=== PATIENT | male | born 1940 | race Caucasian/White ===

== ENCOUNTER 2019-09-01 06:12 | Observation (INO) ==
--- NOTE | 2019-09-01 06:36 | EKG Report ---
Test Performed on : 09/01/2019 06:29:05 AM Test Reason : chest pain Blood Pressure : / mmHG Vent. Rate : 074 BPM Atrial Rate : 074 BPM P-R Int : 150 ms QRS Dur : 082 ms QT Int : 388 ms P-R-T Axes : 075 070 050 degrees QTc Int : 430 ms Sinus rhythm. with occasional premature ventricular complexes. Possible Left atrial enlargement Borderline ECG No previous ECGs available Unconfirmed Result
[2019-09-01 06:40] LABS: BASO# 0.01 X1000 (0.0-0.2); BASO% 0.1 % (0.0-0.8); EOS# 0.07 X1000 (0.0-0.7); EOS% 0.6 % (0.0-10.0); HEMATOCRIT 43.8 % (42.0-52.0); HEMOGLOBIN 14.5 g/dL (14.0-18.0); IMM GRAN# 0.02 X1000 (0.0-0.04); IMM GRAN% 0.2 % (0.0-0.5); LYMPH# 1.11 X1000 (1.2-3.4); LYMPH% 9.4 % (20.5-51.1); MCH 31.3 PG (27-31); MCHC 33.1 g/dL (33-37); MCV 94.4 FL (81-99); MONO# 0.76 X1000 (0.11-0.59); MONO% 6.5 % (1.7-9.3); MPV 9.7 FL (7.4-10.4); NEUT# 9.78 X1000 (1.4-6.5); NEUT% 83.2 % (42.2-75.2); PLT 189 X1000 (130-400); RBC 4.64 XMIL (4.7-6.1); RDW 13.6 % (11.5-14.5); WBC 11.75 X1000 (4.8-10.8)
--- NOTE | 2019-09-01 07:00 | PROVIDER DOCUMENTATION ---
HPI-Respiratory General - General Chief Complaint: Seizure Stated Complaint: FEVER / CHEST TIGHT Time Seen by Provider: 09/01/19 06:29 Source: patient Allergies/Adverse Reactions: Patient Allergies Allergy/AdvReac Type Severity Reaction Status Date / Time codeine AdvReac NAUSEA/VOMI Verified 09/01/19 06:42 TING - History of Present Illness-Resp Nature of Presenting Problem: 79 y/o WM c/o yellow productive cough and SOB chest tightness for the past 3-4 days saying that he thinks he has pneumonia. While in triage pt stated that he felt weak and appeared to have a mild seizure lasting seconds per triage nurse. Quality of Pain: reports: aching Severity in ED: reports: moderate Onset/Duration: reports: 4 days ago Timing: reports: still present, getting worse Context: reports: recent URI Cough Quality/Degree: reports: moderate, productive cough Episode Frequency: no prior episodes Current Respiratory Medication Therapy: Initiated see nurses note Modifying Factors: improves with: coughing Associated Symptoms: reports: chest pain/soreness, cough, fever/chills, nasal congestion, shortness of breath Similar Symptoms Previously?: No Recently seen or treated by another doctor?: No Review of Systems - Adult - REVIEW OF SYSTEMS - ADULT Constitutional: reports: no symptoms reported, see HPI Eyes: reports: no symptoms reported, see HPI Ears, Nose, Mouth & Throat: reports: no symptoms reported, see HPI Cardiovascular: reports: see HPI, chest pain Respiratory: reports: see HPI, shortness of breath Gastrointestinal: reports: no symptoms reported, see HPI Genitourinary: reports: no symptoms reported, see HPI Musculoskeletal: reports: no symptoms reported, see HPI Integumentary: reports: no symptoms reported, see HPI Neurological: reports: see HPI, seizure (possible seizure) Psychiatric: reports: no symptoms reported, see HPI Endocrine: reports: no symptoms reported, see HPI Hematologic/Lymphatic: reports: no symptoms reported, see HPI Allergic/Immunologic: reports: no symptoms reported, see HPI All Other Systems: Reviewed and Negative Past History - Adult - PAST MEDICAL HISTORY-ADULT Review of Records: reports: Nursing Assessment Review, Medications Reviewed, Social history reviewed & non-contributory. Physical Exam-General - PHYSICAL EXAM-ADULT Initial Vital Signs Reviewed: Yes - CONSTITUTIONAL General Appearance: appears well, alert, no apparent distress - EYES Eyes: PERRL/EOMI - HEAD, EARS, NOSE, MOUTH & THROAT HENMT: normocephalic/atraumatic, moist mucous membranes - NECK Neck: non-tender, full range of motion, supple, normal inspection - RESPIRATORY Respiratory: chest non-tender, lungs clear, normal breath sounds, no pleuratic chest pain, no respiratory distress - CARDIOVASCULAR Cardiovascular: normal peripheral pulses, regular rate, rhythm, no edema, no gallop, no JVD, no murmur - GASTROINTESTINAL (ABDOMEN) Abdominal Exam: normal bowel sounds, non tender, soft, abdominal bruit - LYMPHATIC Lymphatic: no adenopathy - MUSCULOSKELETAL Back Exam: normal inspection, no CVA tenderness, no vertebral tenderness Extremity: normal range of motion, non-tender, normal gait, normal inspection, no pedal edema, no calf tenderness, normal capillary refill - SKIN Integumentary: normal color, normal turgor - NEUROLOGIC Neurologic: probate paralegal II-XII nml as tested, grossly normal, no motor/sensory deficits - PSYCHIATRIC Psych/Mental Status: normal mood/affect, normal thought content, normal thought process, oriented x 3 - HEART Score HEART Score: History: Slightly Suspicious HEART Score: ECG: Non-Specific Repolarization Disturbance/LBBB/PM HEART Score: Age: > or = 65 Years HEART Score: Risk Factors for Atherosclerotic Disease: 1 or 2 Risk Factors HEART Score: Troponin: < or = Normal Limit Total HEART Score:: 4 Progress - PLAN OF CARE/RESULTS Progress/Plan/Lab Results: Vital Signs - 8 hr 09/01/19 06:20 09/01/19 07:45 09/01/19 09:13 Temperature 98.2 F 98.8 F Pulse Rate 65 65 Pulse Rate [Sitting] 85 Pulse Rate [Standing] 97 H Pulse Rate [Supine] 66 Respiratory Rate 25 H 18 17 Blood Pressure 130/71 136/60 Blood Pressure [Sitting] 102/46 Blood Pressure [Standing] 101/54 Blood Pressure [Supine] 126/57 O2 Sat by Pulse Oximetry 96 98 09/01/19 09:58 Temperature Pulse Rate Pulse Rate [Sitting] 79 Pulse Rate [Standing] 101 H Pulse Rate [Supine] 81 Respiratory Rate Blood Pressure Blood Pressure [Sitting] 127/62 Blood Pressure [Standing] 126/69 Blood Pressure [Supine] 130/71 O2 Sat by Pulse Oximetry Laboratory Results - last 24 hr 09/01/19 09/01/19 09/01/19 06:28 06:28 06:28 WBC 11.75 H RBC 4.64 L Hgb 14.5 Hct 43.8 MCV 94.4 MCH 31.3 H MCHC 33.1 RDW Std Deviation 13.6 Plt Count 189 MPV 9.7 Immature Gran % (Auto) 0.2 Neut % (Auto) 83.2 H Lymph % (Auto) 9.4 L [place] % (Auto) 6.5 Eos % (Auto) 0.6 Baso % (Auto) 0.1 Immature Gran # (Auto) 0.02 Neut # (Auto) 9.78 H Lymph # (Auto) 1.11 L [place] # (Auto) 0.76 H Eos # (Auto) 0.07 Baso # (Auto) 0.01 Sodium 135 L Potassium 3.9 Chloride 102 Carbon Dioxide 21 L Anion Gap 13 BUN 12 Creatinine 0.9 Estimated GFR/1.73 m2 > 60 BUN/Creatinine Ratio 13 Glucose 161 H Calculated Osmolality 273 Calcium 9.1 Total Bilirubin 0.40 AST 32 ALT 20 Alkaline Phosphatase 85 Troponin T < 0.010 Svf-Y-Ualijcuvvws Pept Total Protein 6.7 Albumin 4.6 Globulin 2.0 Albumin/Globulin Ratio 2.0 Urine Source Urine Color Urine Turbidity Urine pH Ur Specific [place] Urine Protein Ur Glucose (Stick) Ur Ketones (Stick) Urine Blood Urine Nitrite Urine Bilirubin Urobilinogen Dipstick Urine Leukocytes Urine WBC (Auto) Urine RBC (Auto) U Epithel Cells (Auto) Urine Bacteria (Auto) Influenza A (Rapid) Influenza B (Rapid) 09/01/19 09/01/19 09/01/19 06:28 07:35 10:09 WBC RBC Hgb Hct MCV MCH MCHC RDW Std Deviation Plt Count MPV Immature Gran % (Auto) Neut % (Auto) Lymph % (Auto) [place] % (Auto) Eos % (Auto) Baso % (Auto) Immature Gran # (Auto) Neut # (Auto) Lymph # (Auto) [place] # (Auto) Eos # (Auto) Baso # (Auto) Sodium Potassium Chloride Carbon Dioxide Anion Gap BUN Creatinine Estimated GFR/1.73 m2 BUN/Creatinine Ratio Glucose Calculated Osmolality Calcium Total Bilirubin AST ALT Alkaline Phosphatase Troponin T Fes-W-Yaotemdzywv Pept 78 Total Protein Albumin Globulin Albumin/Globulin Ratio Urine Source CLEAN CATCH Urine Color YELLOW Urine Turbidity CLEAR Urine pH 7.0 Ur Specific [place] 1.010 Urine Protein NEGATIVE Ur Glucose (Stick) NEGATIVE Ur Ketones (Stick) TRACE A Urine Blood NEGATIVE Urine Nitrite NEGATIVE Urine Bilirubin NEGATIVE Urobilinogen Dipstick NORMAL Urine Leukocytes NEGATIVE Urine WBC (Auto) <10 Urine RBC (Auto) <10 U Epithel Cells (Auto) <10 Urine Bacteria (Auto) NEGATIVE Influenza A (Rapid) NEGATIVE Influenza B (Rapid) NEGATIVE Orders Category Date Time Status ED: Orthostatic Vital Signs (E DIRECTED Care 09/01/19 07:45 Active Nursing- Obtain EKG ONCE Care 09/01/19 06:30 Completed CHEST-1 VIEW [RAD] Stat Exams 09/01/19 06:[address] HEAD W/O CONTRAST [CT] Stat Exams 09/01/19 07:44 Completed BLOOD CULTURE [BLDCUL] Stat Lab 09/01/19 06:28 Ordered CBC WITH ELECTRONIC DIFF [HEME] Stat Lab 09/01/19 06:28 Completed COMPREHENSIVE METABOLIC PANEL [CHEM] Stat Lab 09/01/19 06:28 Completed Flu [INFLUENZA SCREEN PL] Stat Lab 09/01/19 07:35 Completed PRO B-NATRIURETIC PEPTIDE Stat Lab 09/01/19 06:28 Completed TROPONIN T Stat Lab 09/01/19 06:28 Completed URINALYSIS W/POSS RFLX CULT [URINALYSIS] Stat Lab 09/01/19 10:09 Completed 0.9% Sodium Chloride Inj [Ns] 1,000 ml Med 09/01/19 07:46 Discontinued IV 999 mls/hr EKG [EKG] Stat Ther 09/01/19 06:30 Draft Result Diagrams: 09/01/19 06:28 09/01/19 06:28 - REASSESSMENT Reassessment #1 Time Reassessed: 10:00 Status: unchanged - CONSULTS/PCP/HOSPITALIST Notification #1 *Consult/PCP/Hospitalist*: Dr Stearns Time Discussed: 10:24 Consult Disposition: Will see in ED, Admit - CHANGE OF SHIFT REPORT (ED Provider) 1 Report Given and Care Transferred to:: Dr Erwin Time of Transfer: 07:00 Departure - Departure Date of Disposition Decision: 09/01/19 Time of Disposition Decision: 09:33 DIAGNOSIS: Orthostatic hypotension, Weakness generalized, Seizure-like activity Disposition: ADMITTED INPATIENT 09 Certified Medical Emergency: Emergent Condition: Stable Additional Instructions: ED Follow Up Instructions: You have been treated by a care provider in the Emergency Department. These instructions are being provided to you so you can have an understanding of how to care for yourself upon discharge. Upon discharge from the Emergency Department, you are responsible for making arrangements for follow-up care by a physician of your choice. Take all prescribed medications as directed. Return to the Emergency Department immediately for any new or worsening symptoms. You may call the Physician Referral phone number at [phone] to obtain a list of Physicians who are taking new patients. Referrals and Follow-Ups: None,PCP [Primary Care Provider] - - Critical Care Note This patient required my direct & personal management of CC.: No Attestation - Physician/ HANH Attestation Patient care was provided by Advanced Practice Provider:: No The physician spent face to face time with patient:: Yes Advanced Practice Provider documentation review:: Supervising physician onsite and consulted in the evaluation and care of this patient. The physician did have a face to face encounter with the patient.
[2019-09-01 07:04] LABS: AGAP 13; ALBUMIN 4.6 g/dL (3.5-5.0); ALKALINE PHOSPHATASE 85 U/L (32-122); BUN 12 mg/dL (8-22); CALCIUM 9.1 mg/dL (8.8-10.2); CHLORIDE 102 mmol/L (98-107); COSMO 273; CREATININE 0.9 mg/dL (0.7-1.2); ESTIMATED GFR > 60; GLUCOSE 161 mg/dL (70-104); GOT 32 U/L (10-34); GPT 20 U/L (10-44); POTASSIUM 3.9 mmol/L (3.5-5.1); SODIUM 135 mmol/L (136-145); TCO2 21 mmol/L (25-35); TOTAL PROTEIN 6.7 g/dL (6.3-8.3)
--- NOTE | 2019-09-01 07:21 | Diag Imaging Result Doc PS360 ---
EXAM: CHEST-1 VIEW HISTORY: chest pain TECHNIQUE: Single view COMPARISON: None. FINDINGS: The lungs are hyperexpanded. The heart is not enlarged. The vessels are not distended. There are no infiltrates. No effusion identified. IMPRESSION: Negative exam. Electronically signed by Ramses Reyes 09/01/2019 7:19 AM
[2019-09-01] MEDS ORDERED: NS 1,000 ML IV ONE (07:46)
[2019-09-01 08:00] LABS: INFLUENZA A NEGATIVE (NEGATIVE); INFLUENZA B NEGATIVE (NEGATIVE)
--- NOTE | 2019-09-01 08:36 | Diag Imaging Result Doc PS360 ---
EXAM: CT HEAD W/O CONTRAST HISTORY: seizure TECHNIQUE: CT head without contrast COMPARISON: None. FINDINGS: No parenchymal hemorrhage. No epidural or subdural hematoma. No subarachnoid hemorrhage. Mild atrophy with chronic microvascular ischemic changes. No mass identified on this noncontrasted exam. No hydrocephalus. No sinus opacification. IMPRESSION: 1.No hemorrhage 2.Atrophy with chronic microvascular ischemic changes. This exam was performed using automated exposure control, adjustment of mA or kV according to patient size, and/or use of iterative reconstruction technique. Electronically signed by Ramses Reyes 09/01/2019 8:34 AM
[2019-09-01 10:12] LABS: URINE SOURCE CLEAN CATCH
[2019-09-01 10:15] LABS: BILIRUBIN URINE NEGATIVE (NEGATIVE); BLOOD URINE NEGATIVE (NEGATIVE); COLOR YELLOW; GLUCOSE URINE NEGATIVE (NEGATIVE); KETONE URINE TRACE mg/dL (NEGATIVE); LEUKOCYTES URINE NEGATIVE (NEGATIVE); NITRITE URINE NEGATIVE (NEGATIVE); PROTEIN URINE NEGATIVE (NEGATIVE); TURBIDITY URINE CLEAR (CLEAR); UROBILINOGEN URINE NORMAL (NORMAL)
[2019-09-01 10:17] LABS: UR EPITHELIAL CELLS <10 /HPF (<10); URINE BACTERIA NEGATIVE /HPF; URINE RBC <10 /HPF (<10); URINE WBC <10 /HPF (<10)
--- NOTE | 2019-09-01 11:42 | HISTORY AND PHYSICAL ---
CHIEF COMPLAINT: Productive cough, shortness of breath and chest tightness over the past 3 to 4 days along with some generalized weakness that progressively worsened. He is actually traveling from [place] down to the [place] and stopped here due to the symptoms. HISTORY OF PRESENTING ILLNESS: This is an 79-year-old male who presents to [facility] ER after he states he has had a productive cough of very limited sputum, shortness of breath, chest tightness, and generalized weakness over the past 3 to 4 days. He is actually traveling from [place] down to [place] for the remainder of the winter and stopped here for the symptoms as they had progressively worsened. When he arrived his blood pressure was 130/71. We did orthostatics that showed a lying of 126/57 with a pulse of 66, standing 101/54 with a pulse of 97. His laboratory data was fairly unremarkable. His influenza A and B were both negative. His chest x-ray was negative. CT of the head showed no hemorrhage, atrophy with chronic microvascular ischemic changes. He will be admitted for observation for further evaluation and treatment. PAST MEDICAL HISTORY: Of hypertension, hypothyroidism, and a AR. PAST SURGICAL HISTORY: Of an appendectomy, cholecystectomy, heart stent placement. FAMILY HISTORY: His father had AR and passed. His mom passed of renal disease. SOCIAL HISTORY: Currently lives with his . Denies any tobacco, alcohol or illicit drug use. ALLERGIES: To codeine. HOME MEDICATIONS: Will need to obtain a current list, reconcile, review and restart as appropriate. I will place an order for nursing to update and confirm home medications. LABORATORY DATA: Showed a white blood cell count of 11.75, hemoglobin 14.5, hematocrit 43.8, platelets 189,000. Sodium 135, potassium 3.9, chloride 102, CO2 21, BUN of 12, creatinine 0.9, glucose 161. Cardiac enzyme was negative. ProBNP of 78. Urinalysis was negative. Influenza A and B were both negative. Chest x-ray was negative. Head CT showed no hemorrhage, atrophy with chronic microvascular ischemic changes. EKG showed sinus rhythm with occasional PVCs at 74. REVIEW OF SYSTEMS: He denied any fever, chills, blurred vision, dizziness. He had generalized weakness, a very mild productive cough, mostly dry he says, shortness of breath, chest tightness over the past 3 to 4 days. Denied any abdominal pain, constipation, diarrhea, burning or hurting with urination. PHYSICAL EXAMINATION: On arrival he had a temperature of 98.2 degrees, pulse 65, respirations 25, blood pressure 130/71, saturating 96% on room air. Orthostatics show a lying blood pressure 126/57, pulse 66; sitting 102/46 with a pulse of 85; standing 101/54, pulse 97. GENERAL: This is an 79-year-old male who is lying in the bed and answers questions appropriately. HEENT: Normocephalic, atraumatic. Normal ENT inspection. Oropharynx and nares are clear. EYES: Pupils are equal, round, reactive to light and accommodation. Extraocular movements are intact. NECK: Normal inspection normal range of motion. LUNGS: Clear to auscultation bilaterally with equal lung expansion and chest wall movement. HEART: Regular rate and rhythm. No murmurs, rubs, or gallops. ABDOMEN: Soft, nontender, nondistended. Bowel sounds are present x4 quadrants. MUSCULOSKELETAL: He had 5/5 strength x4 extremities. NEUROLOGICAL: The cranial nerves 2-12 appear grossly intact. ASSESSMENT: 1. Generalized weakness. 2. Orthostatic hypotension. 3. Hypothyroidism. 4. History of hypertension. PLAN: He will be admitted to the medical unit, placed on telemetry, healthy heart diet. We will place him on normal saline at 75 mL an hour. SCDs for DVT prophylaxis. We will need to update and confirm home medications and restart those as appropriate. Recheck a CBC, BMP in the a.m. Further orders after seen by attending. Dictated by SOLIS Peters for Franklin Stearns MD cc: SOLIS Peters MD
[2019-09-01] MEDS ORDERED: TYLENOL PO PRN (11:48)
[2019-09-01] MEDS ORDERED: ZOFRAN IV PRN (11:48)
[2019-09-01] MEDS: NS 1,000 ML IV SCH (12:26)
--- NOTE | 2019-09-01 13:34 | HISTORY AND PHYSICAL ---
The patient presented to the hospital with a couple of day history of generalized weakness. States he has been traveling through town. His weakness has worsened. Therefore, he came to the ER, initially thinking that he had pneumonia. On exam in the ER, he was noted to have orthostatic hypotension, although mildly. We are going to admit him to the hospital, place him on IV fluids, and will follow. Please see full note. cc: Franklin Stearns MD
[2019-09-02] MEDS: NS 1,000 ML IV SCH (00:45)
[2019-09-02 05:55] LABS: BASO# 0.01 X1000 (0.0-0.2); BASO% 0.1 % (0.0-0.8); EOS# 0.05 X1000 (0.0-0.7); EOS% 0.5 % (0.0-10.0); HEMATOCRIT 39.2 % (42.0-52.0); HEMOGLOBIN 12.5 g/dL (14.0-18.0); IMM GRAN# 0.02 X1000 (0.0-0.04); IMM GRAN% 0.2 % (0.0-0.5); LYMPH# 1.09 X1000 (1.2-3.4); LYMPH% 11.3 % (20.5-51.1); MCH 30.6 PG (27-31); MCHC 31.9 g/dL (33-37); MCV 95.8 FL (81-99); MONO% 6.2 % (1.7-9.3); MPV 10.1 FL (7.4-10.4); NEUT# 7.89 X1000 (1.4-6.5); NEUT% 81.7 % (42.2-75.2); PLT 147 X1000 (130-400); RBC 4.09 XMIL (4.7-6.1); RDW 13.7 % (11.5-14.5); WBC 9.66 X1000 (4.8-10.8)
[2019-09-02 06:10] LABS: AGAP 8; BUN 10 mg/dL (8-22); CALCIUM 8.3 mg/dL (8.8-10.2); CHLORIDE 109 mmol/L (98-107); COSMO 280; CREATININE 0.8 mg/dL (0.7-1.2); ESTIMATED GFR > 60; GLUCOSE 100 mg/dL (70-104); POTASSIUM 4.1 mmol/L (3.5-5.1); SODIUM 141 mmol/L (136-145); TCO2 24 mmol/L (25-35)
[2019-09-02 09:02] VITALS: BP 124/54
--- NOTE | 2019-09-02 11:34 | DISCHARGE SUMMARY ---
ADMISSION DATE: 09/01/2019 DISCHARGE DATE: 09/02/2019 PRIMARY CARE PHYSICIAN: None local. He does have one in [place]. ADMISSION DIAGNOSES: 1. Generalized weakness. 2. Orthostatic hypotension. 3. Hypothyroidism. 4. History of hypertension. DISCHARGE DIAGNOSES: 1. Generalized weakness, improved. 2. Orthostatic hypotension, resolved. 3. Hypothyroidism. 4. History of hypertension. SUMMARY OF FINDINGS: This is an 79-year-old male, who presented to the ER stating that he had a productive cough with very limited sputum, shortness of breath, some chest tightness and generalized weakness over the past 3 to 4 days. Had been traveling from [place] down to [place] for the remainder of the winter, and stopped through here as his symptoms he felt progressively worsened. His blood pressure on arrival was 130/71. We did orthostatics that showed a lying of 126/57 with a pulse of 66, standing was 101/54 with a pulse of 97. Laboratory data was fairly unremarkable, but we admitted him for observation. Gave him IV hydration, and this morning we checked orthostatics, again showed a lying of 124/54 with a pulse of 71, sitting was 114/51 with a pulse of 84, standing 121/59 with a pulse of 93, and it is felt that he can safely be discharged home. DISCHARGE MEDICATIONS: He will continue his home medications of aspirin 81 mg p.o. daily, Latanoprost 1 drop ophthalmically at bedtime, Synthroid 75 mcg p.o. daily, losartan 50 mg p.o. daily and tamsulosin 0.4 mg p.o. as directed. FOLLOW-UP: He will follow up with his primary care physician once he has returned to [place]. TIME SPENT: 35 minute discharge. Dictated by SOLIS Peters for Urbano Curtis MD cc: SOLIS Peters MD Gregory S. Cheatham, MD
--- NOTE | 2019-09-02 16:06 | DISCHARGE SUMMARY ---
ADMISSION DATE: 09/01/2019 DISCHARGE DATE: 09/02/2019 The patient came in with orthostatic hypotension. He feels better today after hydration. Upon further discussion with him, he does report that he was on Flomax, and he was just recently started on Flomax. I think that is the most likely mechanism of his orthostasis. I recommended he stop it altogether at least in the short term or at least cutting it down to half, and he is going to follow up with PCP and get an echocardiogram and carotid as an outpatient. This is a service admission. SOLIS Peters, was also involved. cc: MD Franklin Asher MD
== END 2019-09-02 11:59 | disposition home or self-care (01) ==
LOC: P.MEDSURG 06:12 → P.ED 06:12 → SUATTDRO 11:11
PROVIDERS: ADMIT Family Medicine; ATTEND Internal Medicine